=== PATIENT | male | born 1995 | race Two or more races ===

== ENCOUNTER 2019-11-08 08:15 | Emergency (ER) | payer SELFPAY ==
[~2019-11-08] VITALS: Ht 167.6 cm; Wt 65.8 kg
[2019-11-08 08:16] VITALS: BP 175/122
--- NOTE | 2019-11-08 08:16 | NUR ---
ED Nurse Note: Patient SHERIF GUZ[place] from a motel c/o Overdose. Per pt, he took [place] 10/325mg x6 tabs yesterday at 1700. His last pill intake was at 2300 yesterday. Denies SI. Noted with bilateral hand tremors. AAO x4, verbally responsive. No SOB. Pt placed on rigger third.
--- NOTE | 2019-11-08 08:27 | NUR ---
ED Nurse Note: IV line established. Blood specimen collected and sent to lab.
--- NOTE | 2019-11-08 08:43 | NUR ---
ED Nurse Note: Urine specimen collected and sent to lab.
[2019-11-08 08:51] LABS: HEMATOCRIT 49.6 % (42.0-52.0); MEAN CORPUSCULAR VOLUME 87 FL (80-99); PLATELET COUNT 276 K/UL (150-450); RED BLOOD COUNT 5.71 M/UL (4.70-6.10); RED CELL DISTRIBUTION WIDTH 10.5 % (11.6-14.8); WHITE BLOOD COUNT 13.1 K/UL (4.8-10.8)
[2019-11-08 08:57] LABS: ANION GAP 13 mmol/L (5-15); BLOOD UREA NITROGEN 8 mg/dL (7-18); CARBON DIOXIDE 27 MMOL/L (21-32); CHLORIDE 101 MMOL/L (98-107); HEMOGLOBIN 18.6 G/DL (14.2-18.0); POTASSIUM 3.6 MMOL/L (3.5-5.1); SODIUM 141 MMOL/L (136-145)
[2019-11-08 09:02] LABS: ALANINE AMINOTRANSFERASE 37 U/L (12-78); ALBUMIN 4.3 G/DL (3.4-5.0); ALBUMIN/GLOBULIN RATIO 1.2 (1.0-2.7); ALKALINE PHOSPHATASE 110 U/L (46-116); ASPARTATE AMINO TRANSFERASE 29 U/L (15-37); BILIRUBIN,TOTAL 0.5 MG/DL (0.2-1.0)
[2019-11-08 09:16] VITALS: BP 137/96
--- NOTE | 2019-11-08 09:35 | Emergency Room Report ---
History of Present Illness General Chief Complaint: Overdose Source: EMS Present Illness HPI This patient is brought in by EMS. He states that he took approximately 7 tablets of 10/325 mg [place]'s over the past 15 hours. States he approximately took a tablet every couple hours. He states he was just trying to "get high." He denies suicidal ideation. He states that he also uses marijuana heavily. He states that he drinks alcohol heavily. He states he "pops" Xanax regularly. He presents to the emergency department because he has been having twitching. He does not desire any type of rehab. He has no other complaints. Allergies: Coded Allergies: No Known Allergies (Unverified , 11/08/19) COVID-19 Screening Contact w/high risk pt: No Recent Travel to affected area: No Experienced COVID-19 symptoms?: No COVID-19 Testing performed FILTER SCREEN CLEANER: No Patient History Past Medical History: none, other - Hx of polysubstance abuse. Social History: Reports: alcohol use, drug use Reviewed Nursing Documentation: PMH: Agreed; PSxH: Agreed Nursing Documentation-PMH Past Medical History: No Stated History Review of Systems All Other Systems: negative except mentioned in HPI Physical Exam Vital Signs Date Time Temp Pulse Resp B/P (MAP) Pulse Ox O2 Delivery O2 Flow Rate FiO2 11/08/19 08:11 98.6 84 16 175/122 (139) 98 Room Air Sp02 EP Interpretation: reviewed, normal General Appearance: no apparent distress, alert, GCS 15, non-toxic Head: normocephalic, atraumatic Eyes: bilateral eye normal inspection, bilateral eye PERRL ENT: hearing grossly normal, normal pharynx, no angioedema, normal voice Neck: full range of motion, supple/symm/no masses Respiratory: chest non-tender, lungs clear, normal breath sounds, no respiratory distress, no retraction, no accessory muscle use, speaking full sentences Cardiovascular #1: regular rate, rhythm, no edema Gastrointestinal: normal bowel sounds, non tender, soft, non-distended, no guarding, no rebound Rectal: deferred Musculoskeletal: back normal, normal range of motion, gait/station normal, non- tender Neurologic: alert, motor strength/tone normal, oriented x3, sensory intact, responsive, speech normal, other - Intermittent twitching...(? intentional) Psychiatric: judgement/insight normal, memory normal, mood/affect normal, no suicidal/homicidal ideation Skin: no rash, normal color Medical Decision Making Diagnostic Impression: Primary Impression: Drug abuse and dependence Additional Impression: Drug side effects ER Course I suspect this patient is medication seeking versus intoxicated on another substance. The patient states that he received a "[place]" from the street, although he states he always gets it from the same sellar that is his friend. Possibly this was not [place] tablets and some other drug versus the patient is attempting to get benzodiazepines in the emergency department. Regardless, the patient is tox screen showed 0 acetaminophen and 0 opioids. He could also have some element of withdrawal or psychosis versus a side effect. Regardless, the patient's laboratory work-up is benign and overall the patient is alert and oriented without any evidence of significant toxicity. Given the patient's tendency for abuse I will not be giving this patient any type of controlled substance. Patient was educated to stop using drugs and to seek rehab when he is ready. At this time, I did not identify an emergency medical condition. The patient is given return precautions and follow-up instructions. Laboratory Tests Test 11/08/19 08:22 11/08/19 08:42 White Blood Count 13.1 K/UL (4.8-10.8) H Red Blood Count 5.71 M/UL (4.70-6.10) Hemoglobin 18.6 G/DL (14.2-18.0) *H Hematocrit 49.6 % (42.0-52.0) Mean Corpuscular Volume 87 FL (80-99) Mean Corpuscular Hemoglobin 32.6 PG (27.0-31.0) H Mean Corpuscular Hemoglobin Concent 37.5 G/DL (32.0-36.0) H Red Cell Distribution Width 10.5 % (11.6-14.8) L Platelet Count 276 K/UL (150-450) Mean Platelet Volume 8.0 FL (6.5-10.1) Neutrophils (%) (Auto) % (45.0-75.0) Lymphocytes (%) (Auto) % (20.0-45.0) Monocytes (%) (Auto) % (1.0-10.0) Eosinophils (%) (Auto) % (0.0-3.0) Basophils (%) (Auto) % (0.0-2.0) Neutrophils % (Manual) Pending Lymphocytes % (Manual) Pending Platelet Estimate Pending Platelet Morphology Pending Sodium Level 141 MMOL/L (136-145) Potassium Level 3.6 MMOL/L (3.5-5.1) Chloride Level 101 MMOL/L (98-107) Carbon Dioxide Level 27 MMOL/L (21-32) Anion Gap 13 mmol/L (5-15) Blood Urea Nitrogen 8 mg/dL (7-18) Creatinine 1.0 MG/DL (0.55-1.30) Estimated Glomerular Filtration Rate > 60 mL/min (>60) Glucose Level 109 MG/DL (74-106) H Calcium Level 9.0 MG/DL (8.5-10.1) Total Bilirubin 0.5 MG/DL (0.2-1.0) Aspartate Amino Transferase (AST) 29 U/L (15-37) Alanine Aminotransferase (ALT) 37 U/L (12-78) Alkaline Phosphatase 110 U/L (46-116) Total Protein 8.0 G/DL (6.4-8.2) Albumin 4.3 G/DL (3.4-5.0) Globulin 3.7 g/dL Albumin/Globulin Ratio 1.2 (1.0-2.7) Salicylates Level 1.7 ug/mL (2.8-20) L Acetaminophen Level < 2 MCG/ML (10-30) L Serum Alcohol < 3 mg/dL Urine Opiates Screen Pending Urine Barbiturates Screen Pending Phencyclidine (PCP) Screen Pending Urine Amphetamines Screen Pending Urine Benzodiazepines Screen Pending Urine Cocaine Screen Pending Urine Marijuana (THC) Screen Pending EKG Diagnostic Results Rate: normal Rhythm: NSR ST Segments: no acute changes Rhythm Strip Diag. Results EP Interpretation: yes Rate: 80's Rhythm: NSR, other - Occassional PVC's Last Vital Signs Date Time Temp Pulse Resp B/P (MAP) Pulse Ox O2 Delivery O2 Flow Rate FiO2 11/08/19 08:16 84 16 Room Air 11/08/19 08:16 98.6 175/122 98 Status: improved Disposition: HOME, SELF-CARE Condition: Improved Referrals: NOT CHOSEN IPA/,REFERRING (PCP) Kirstie Connelly DO November 08, 2019 09:35
[2019-11-08 09:44] VITALS: BP 142/89
--- NOTE | 2019-11-08 09:44 | NUR ---
ED Nurse Note: Pt cleared by ERMD for discharge. DC instructions was given and explained to pt and verbalized understanding of teachings. All medical deviecs such as ID band and IV line removed. Pt is AAO x4, ambulatory and left with all personal belongings. P/U by S/O.
== END 2019-11-08 09:45 | disposition home or self-care (01) ==
LOC: EDBD 08:15 → EMR 08:38
DX: F11.20 Opioid dependence, uncomplicated (principal); F12.90 Cannabis use, unspecified, uncomplicated; F14.90 Cocaine use, unspecified, uncomplicated
CPT/HCPCS: 36415; 80053; 80307; 85007; 85025; 93005; 96360; 99284; G0480